=== PATIENT | female | born 1960 | race Caucasian/White ===

== ENCOUNTER 2016-05-15 13:08 | Outpatient (CLI) | payer OTHER | END 2016-05-15 13:09 | disposition home or self-care (01) | DX: Z13.820 Encounter for screening for osteoporosis (principal); Z78.0 Asymptomatic menopausal state ==

== ENCOUNTER 2017-04-25 08:03 | Outpatient (CLI) | payer OTHER ==
--- NOTE | 2017-04-27 08:31 | Mammography Report ---
BILATERAL DIGITAL SCREENING MAMMOGRAM: 04/25/2017 CLINICAL INDICATION: A 57-year-old with history of late childbearing, family history of breast cancer for screening. COMPARISON: 04/2016, 04/2015, 04/2014, 04/2013, 04/2012, 04/2011, 03/2010. TECHNIQUE: Routine CC and MLO projections were obtained of the breasts. FINDINGS: Parenchymal tissue within both breasts is heterogeneously dense, which may lower the sensitivity of mammography; however, there are no dominant masses, suspicious microcalcifications, or secondary signs of malignancy. In comparison to the previous studies, there are no significant changes. ASSESSMENT: NO MAMMOGRAPHIC EVIDENCE OF MALIGNANCY. NO SIGNIFICANT INTERVAL CHANGES. RECOMMENDATION: Screening mammography is recommended annually. BIRADS category 1 - negative. STANDARD QUALIFYING STATEMENTS 1. This examination was reviewed with the aid of Computed Aided Detection (CAD). 2. A negative x-ray report should not delay biopsy if a dominant or clinically suspicious mass is present. More than 5% of cancers are not identified by x-ray. 3. Dense breasts may obscure an underlying neoplasm. [place] 04/28/17 TD: 04/26/2017 21:10 CHRISTINA
== END 2017-04-25 08:04 | disposition home or self-care (01) ==
LOC: DI 08:03
PROVIDERS: ATTEND Registered Nurse
DX: Z12.31 Encounter for screening mammogram for malignant neoplasm of breast (principal)
CPT/HCPCS: 77067

== ENCOUNTER 2018-05-09 14:44 | Outpatient (CLI) | payer OTHER ==
--- NOTE | 2018-05-10 09:09 | Mammography Report ---
Reason: SCREENING MAMMO Procedure Date: 05/09/2018 Accession Number: [id number] / [id number] Procedure: [facility] - Screening Mammo w/Thony CPT Code: FULL RESULT: EXAM: Screening Mammo w/Thony DATE: 05/09/2018 4:24 PM CLINICAL HISTORY: Screening encounter. History of late childbearing. Family history of breast cancer in the mother at age 71 and age 86, the sister at age 56 and an aunt at age 71 as well as a grandmother at the age of 45. TECHNIQUE: Bilateral CC and MLO views were obtained. COMPARISON: 04/25/2017 through 04/07/2013. FINDINGS: The breasts demonstrate scattered fibroglandular densities bilaterally. There is a typically benign coarse left breast calcification. No suspicious masses, clustered microcalcifications, or regions of architectural distortion are identified. IMPRESSION: Benign findings RECOMMENDATION: Routine annual screening unless otherwise clinically indicated. BIRADS CATEGORY 2: Benign findings STANDARD QUALIFYING STATEMENTS: 1. This examination was not reviewed with the aid of Computer-Aided Detection (CAD). 2. A negative or benign imaging report should not preclude biopsy if clinically suspicious findings are present. 3. Dense breasts may obscure an underlying neoplasm. 4. This examination was reviewed with the aid of 3D breast imaging (tomosynthesis).
== END 2018-05-09 14:45 | disposition home or self-care (01) ==
LOC: DI 14:44
DX: Z12.31 Encounter for screening mammogram for malignant neoplasm of breast (principal); Z80.3 Family history of malignant neoplasm of breast
CPT/HCPCS: 77063; 77067

== ENCOUNTER 2019-01-20 11:37 | Outpatient (CLI) | payer OTHER ==
--- NOTE | 2019-01-21 13:38 | XRAY Report ---
Reason: INTERMITTENT LEFT SCIATICA PAIN Procedure Date: 01/20/2019 Accession Number: [id number] / [id number] Procedure: XR - Lumbar Spine 2 View CPT Code: FULL RESULT: EXAM: LUMBOSACRAL SPINE RADIOGRAPHY EXAM DATE: 01/20/2019 12:21 PM. CLINICAL HISTORY: Intermittent left sciatica pain. COMPARISONS: None. TECHNIQUE: 2 views. FINDINGS: Alignment: No definite acute malignment. Approximately 5 mm of anterolisthesis of L4 on L5 is likely degenerative in nature. Bones: Five [id number] lumbar vertebral bodies are present. No fractures or bone lesions. Degenerative Changes: Severe L5-S1 disk height loss. Lesser mild to moderate degenerative disk disease throughout the lumbar spine, worst at the L4-L5 level. Moderate lower lumbar facet DJD. Soft Tissues: Normal. The visualized bowel gas pattern is normal. IMPRESSION: 1. Severe L5-S1 degenerative disk disease. 2. Lesser mild to moderate degenerative disk disease throughout the lumbar spine, worst at the L4-L5 level. 3. Moderate lower lumbar facet DJD. 4. Approximately 5 mm anterolisthesis of L4 on L5 is likely degenerative related. [facility]
== END 2019-01-20 11:38 | disposition home or self-care (01) ==
LOC: DI 11:37
PROVIDERS: ATTEND Registered Nurse
DX: M51.37 Other intervertebral disc degeneration, lumbosacral region (principal); M51.36 Other intervertebral disc degeneration, lumbar region; M47.816 Spondylosis without myelopathy or radiculopathy, lumbar region; M43.16 Spondylolisthesis, lumbar region
CPT/HCPCS: 72100